=== PATIENT | female | born 1995 | race Hispanic/Latino ===

== ENCOUNTER 2017-01-04 11:12 | Inpatient (IN) | payer OTHER ==
[~2017-01-04] VITALS: Ht 156.2 cm; Wt 77.1 kg
[~2017-01-04 11:12] MED LIST: ASCO500T8 PO; Benzocaine TOPICAL; Docusate Sodium PO; FERR-74 PO; Hydrocodone/Acetaminophen PO; Ibuprofen PO; Lanolin TOPICAL; PREN1TAB78 PO; TUCPAD TOPICAL
[2017-01-04] MEDS ORDERED: Lactated Ringer's 1,000 ML IV PRN (12:29)
[2017-01-04] MEDS ORDERED: Oxytocin 10 Unit/mL Inj IM PRN ×2 (12:30→22:00)
[2017-01-04] MEDS ORDERED: Oxytocin 30 Units/500 mL LR 30 UNITS in IV Premix 1 EACH IV PRN ×2 (12:30→22:00)
[2017-01-04] MEDS ORDERED: Carboprost 250 mCg/mL Inj IM PRN ×2 (12:30→22:00)
[2017-01-04] MEDS ORDERED: Methylergonovine 0.2 mg/mL Inj IM PRN ×2 (12:30→22:00)
[2017-01-04] MEDS ORDERED: Ampicillin Inj 2,000 MG in 0.9% Sodium Chloride 100 ML IV ONE (12:30)
[2017-01-04] MEDS ORDERED: Hemorrhage Kit, Post Partum XX ONE ×2 (12:30→22:00)
[2017-01-04] MEDS ORDERED: fentaNYL-PF 50 mCg/mL 2 mL Inj IVPUSH PRN (12:30)
[2017-01-04 12:43] LABS: Mean Corpuscular Hemoglobin 26.2 pg (27.0-35.0); Mean Corpuscular Volume 79.3 fL (81-100)
--- NOTE | 2017-01-04 12:57 | PCM.HPOB ---
Subjective Date of Service: Jan 04, 2017 Referring Provider: Admitting Physician: Rimma Phelan MD Primary Care Physician: Rimma Phelan MD Attending Physician: Rimma Phelan MD Wireless Cellular Technician: Dr. Moore Chief Complaint at 37+3 weeks with SROM at 02:00hrs 01/04/2017 History of Present History of Present Illness Patient is a very pleasant 21-year-old who has an EDC of 01/21/2017 by an ultrasound done at 23 weeks. She presented late for care as she was still breast-feeding her first child and was having irregular cycles. She did not realize she was even for at least a few months. She has come regularly since presentation to care in early September. Ultrasound done September 29 showed a healthy baby boy at 23 weeks +5 days with EDC of 317. Mother's blood pressures have been normotensive throughout the and weight gain has been less than 10 pounds. Blood type is O+, with no abnormal antibodies. Initial hemoglobin was 11.8. Pap smear was normal. Varicella and rubella are both immune. RPR was nonreactive, hepatitis B surface engine was negative, HIV was negative, and urine culture was negative. Hepatitis C is less than 0.1. HSV type I was positive but HSV type II was negative. TSH was normal at 0.58. GC chlamydia testing was negative. Her 1 hour GTT was elevated at 205 but three-hour GTT was normal with fasting blood sugar of 78, 1 hour of 129, 2 are 116, and 3 hour of 101. Patient woke at around 0200 hrs. today with spontaneous rupture of membranes. She was not michael and went back to sleep. She has continued to leak fluid since that time and actually went to work but then called the office and was advised to come to the center. At present she is grossly ruptured. heart rate is in the 130s to 140s with good nkei-ef-pumn variability. Her fluid is clear and she has had some slight bloody mucus. She is feeling the baby move and is having only rare contractions. She has otherwise been feeling well with no signs of cough or cold and no fevers. Bladder and bowel function have been normal. Vaginal exam showed vertex at -3 station, 25% effaced, and cervix is of moderate consistency. Options reviewed with her and Cervidil will be placed and hopefully will be able to affect some cervical softening. Pitocin augmentation is anticipated later on. Estimated weight is between 5-6 pounds. Vaginal delivery is anticipated area did mother is GBS negative but I am starting antibiotics given her gestational age and PROM. Given her irregular cycles and unknown LMP, she could clinically be 36+3 to 38+3 weeks at this time. She would like an epidural once labor is active. Vaginal delivery is anticipated. I have reviewed her admission with Dr. Moore. OB History: (2), Term (1), (0), Living (1) Obstetrical Complications: Other (late presentation to care due to irregular cycles and ) Past Medical History Obstetrical History: 1. Baby #1 was born May 2014 at 40 weeks +2 days following 9 hours of labor. She had an epidural and went onto of a baby girl, weighing 5 lbs. 12 oz.. She did have mild PIH and oligohydramnios noted in labor but did not require any medications for this and has not had any hypertension in this . She breast-fed that baby for over 2-1/2 years. "Christine" Gynecologic History: She has not had any history of abnormal Pap smears or STDs. Medical History: She has had extensive tinea versicolor for years, especially involving her torso. She has acanthosis nigricans and has had mild depression in the past. She has not had any problems with depression or anxiety. Surgical History: She has not had any previous surgical procedures. Social History: She is single and lives with the father of her daughter. 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 She has high school education and is bilingual Ukrainian and [place]. Hx Tobacco Use: No Hx Alcohol Use: No Hx Substance Use: No Past Family History Living Arrangement: with Family Genetic Screening/Counseling Comment: no genetic testing done as patient presented to late for care Baby father-had child w defect: No Review of Systems Constitutional: Y: Change of appitite, Fever, Pain Eyes: Denies: Blurred Vision, Redness, Vision Changes ENT: Denies: Dental Problems, Ear Pain, Nasal Congestion, Nose Discharge, Throat Pain Cardiovascular: Denies: Chest Pain, Edema Respiratory: Denies: Cough, SOB with Exertion Gastrointestinal: Denies: Abdominal Pain, Constipation, Diarrhea, Heartburn, Nausea, Vomiting Genitourinary: Denies: Dysuria, Hematuria Musculoskeletal: Denies: Redness, Swelling Skin/Breasts: Denies: Bruising, Discharge Skin: Denies: Bruising, Jaundice Neurological: Denies: Change in Speech, Confusion, Dizziness Psychologic: Denies: Agitation, Anxious, Apprehensive, Depression Hematologic: Denies: Adenopathy Medications Home medications Patient is only taking vitamins Allergy Coded Allergies: No Known Allergies (Unverified Allergy, Unknown, 06/02/14) Exam Vital Signs Vital signs reviewed and are stable Exam heart rate baseline in the 130 to 140s with clear sleep-wake cycles and good ggen-xd-fgcn variability. Category 1 tracing. Constitutional: Well-developed, Well-nourished, Normal habitus HEENT: PERRLA, Mucous Membr Moist/[place] Lungs: Clear to Auscultation, Normal Air Movement Heart: Regular Rate/Rhythm, Normal S1, Normal S2, No Murmurs/Rubs/Gallops Abdomen: Gravid, Normal bowel sounds, Soft, No tenderness Lymphatic: Normal: Neck Palpation of Nodes Extremities: Pulses Palpable x4, Warm, No Edema Skin: Rashes (extensive tinea versicolor over her torso, some tattoos) Neurological/Psychiatric: Alert, Oriented X3, Cooperative, No Acute Distress Neuro: Grossly Neurologically Intact Gynecologic: Normal: Cervix (vaginal exam showed vertex at -3 station, cervix 25% effaced, and moderate consistency. She was 2 cm dilated.) Labs/Diagnostics Labs Admission hemoglobin and hematocrit pending at time of this dictation. Blood type is O+ with no abnormal antibodies. Varicella and rubella are both immune. RPR is nonreactive. Hepatitis B surface antigen was negative, HIV negative, hepatitis C less than 0.1. HSV type I was positive but type II is negative. TSH normal at 0.58. GC chlamydia negative. One-hour GTT elevated at 205 but three-hour GTT was normal with fasting blood sugar of 78, one-hour 129, 2 or 116 , and 3 hour 101. A1c was 5.9%. Maternal Blood Type: O Hx Rho(D) Immune Globulin: No Antibody Screen: negative Group B Strep Results: Negative Previous with GBS: No Rubella: Immune Lab History: Positive for: Hx Herpes, Negative for: Hx Chicken Pox, Hx Gonorrhea, Hx HIV, Hx Syphilis OB Intrapartum Assessment/Plan Assessment Patient is a pleasant 21 -year-old who presented late for care as she had irregular cycles and was breast-feeding and did not realize she was . She has come regularly since presentation in early September. LMP is unknown and EDC of 01/21/2017 is [id number]. Patient may be 37+3 weeks plus or -1 week. She has had spontaneous rupture of membranes for clear fluid since 0200 hrs. this morning. She will be started on ampicillin and covered until delivery given possible status. Cervidil will be placed and Pitocin augmentation is anticipated at some point. Patient would like an epidural when appropriate. is also anticipated. Problems: (1) with 37 weeks completed gestation Status: Acute ICD Code: Z3A.37 (2) SROM (spontaneous rupture of membranes) Status: Acute ICD Code: [id number] Pain Evaluation: Adequate Pain Control Rimma Phelan MD Jan 04, 2017 12:57
[2017-01-04] MEDS: Sodium Chloride LOK Flush 10 mL Syringe IVFLUSH PRN ×2 (15:23→18:01)
[2017-01-04] MEDS: Lactated Ringer's 1,000 ML IV SCH ×3 (15:24→19:07)
[2017-01-04] MEDS ORDERED: Ampicillin Inj 1,000 MG in 0.9% Sodium Chloride 50 ML IV SCH (16:30)
[2017-01-04] MEDS ORDERED: fentaNYL 2 mCg/mL-Bupivicaine 0.125% 100 mL Premix EPIDURAL ONE (19:29)
[2017-01-04] MEDS ORDERED: Lactated Ringer's 1,000 ML IV SCH ×2 (19:43→21:57)
[2017-01-04] MEDS ORDERED: Lactated Ringer's 500 ML IV ONE (19:43)
--- NOTE | 2017-01-04 19:43 | PCM.HPANE ---
Patient Data Date of Service: Jan 04, 2017 (1909) Surgeon Admitting Provider:Rimma Phelan MD Attending Provider:Rimma Phelan MD Primary Care Physician:Rimma Phelan MD Other Provider:Lou Ibarra Anesthesia Reason for Visit Term Early Labor TERM EARLY LABOR Ht/WT & BMI Height (Feet): 5 Height (Inches): 3 Body Mass Index Allergies Coded Allergies: No Known Allergies (Unverified Allergy, Unknown, 01/04/17) Medications Active Scripts Witch Joelle/Glycerin (A.e.r Pads)12 Towelette/Pkg Towelette1 Towelette TOPICAL UD PRN perineal discomfort #12 TOWELETTE Prov:Rimma Phelan MD 06/04/14 [Lanolin] (Lansinoh Ointment)14 APPLIC/7 GM OINT No Conflict Check1 Applic TOPICAL PRN PRN Prov:Rimma Phelan MD 06/04/14 [Ibuprofen] (Motrin)800 MG TABLET No Conflict Dheao415 Mg PO Q6H PRN For Pain # 40 TABLET Prov:Rimma Phelan MD 06/04/14 [Hydrocodone/Acetaminophen] (Vicodin 5/325 mg)1 TAB TABLET No Conflict Check1-2 Tab PO Q3H PRN For Pain #40 TABLET Prov:Rimma Phelan MD 06/04/14 Ferrous Sulfate (Feosol)325 Mg Wycvvx032 Mg PO DAILYWM #90 TABLET Prov:Rimma Phelan MD 06/04/14 [Docusate Sodium] (Colace)100 MG CAPSULE No Conflict Qvwsw427 Mg PO BID PRN For Constipation #60 CAPSULE Ref 1 Prov:Rimma Phelan MD 06/04/14 [Benzocaine] (Dermoplast 20% Stanford)1 SPRAY/GM SPRAY No Conflict Check1 [place] TOPICAL UD PRN For Discomfort #1 CAN Prov:Rimma Phelan MD 06/04/14 Ascorbic Acid (Vitamin C)500 Mg Qyvjvi022 Mg PO DAILY #90 TABLET Prov:Rimma Phelan MD 06/04/14 Reported Medications Vits W-Ca,Fe,FA(<1Mg) ( Formula)1 Each Tablet1 Each PO DAILY 06/02/14 History History of ENT Problems?: No Hx of Heart Problems?: No Hx of Respiratory Problem?: No Hx Neurologic Problems?: No Hx of GI Problems?: No Hx of Problems?: No HX of Peritoneal Dialysis: No Female Hx: Positive for:: Currently Hx Musculoskeletal Problems?: No Hx of Psycho/Social Problems?: No Hx Surgeries?: No Hx Alcohol Use: NoHx Substance Use: No Smoking Status: Never Smoker Stop/Bang SU Risk Assessment: Low Risk, <3 Yes Risk Assessment Category Category 1A: Patient has history of documented sleep apnea, and HAS NOT received any narcotic, sedative or anesthesia administration during this stay. Category 1B: Patient has history of documented sleep apnea, and HAS received any narcotic , sedative or anesthesia administration during this stay Category 2: Patient has SUSPECTED Obstructive Sleep Apnea, and HAS received any narcotic , sedative or anesthesia administration during this stay. Category 3: Patient has SUSPECTED Obstructive Sleep Apnea and HAS NOT received narcotic, sedative or anesthesia administration during this stay. Category 4: Outpatient in Procedural Areas with known sleep apnea or who screen positive for High Risk via the STOP/BANG questionnaire. Exam Exam General Appearance: Alert, Oriented X3, Cooperative Lungs: Clear to Auscultation Heart: Exam Unremarkable Meds/Labs/Diagnostics Admission Meds Current Medications Lactated Ringer's (Lr) 1,000 ml @ 125 mls/hr Q8H IV Last administered on 19:07; Start 01/04/17 at 12:29 Dinoprostone 10 mg 10 mg ONCE ONCE VAGINAL Last administered on 01/04/17 14: 27; Start 01/04/17 at 12:30; Stop 01/04/17 at 12:40; Status DC Ampicillin Sodium/ Sodium Chloride (Principen Inj/ Normal Saline) 100 ml @ 200 mls/hr ONCE ONCE IV Last administered on 01/04/17 15:57; Start 01/04/17 at 12 :30; Stop 01/04/17 at 12:59; Status DC Labs Test 01/04/17 12:25 01/04/17 14:00 01/04/17 17:16 White Blood Count 10.1th/mm3 (3.8-10.1) Red Blood Count 4.58mil/mm3 (3.90-5.20) Hemoglobin 12.0g/dL (12.0-15.6) Hematocrit 36.3% (35.0-46.0) Mean Corpuscular Volume 79.3fL (81-100) Mean Corpuscular Hemoglobin 26.2pg (27.0-35.0) Mean Corpuscular Hemoglobin Concent 33.1% (32.0-37.0) Red Cell Distribution Width 15.1% (12.3-15.4) Platelet Count 348bil/L (150-400) HIV (1&2) Antibody Rapid Negative (Negative) Hold Urine Received (Received) Plan Impression Patient chart reviewed, patient interviewed and anesthestic plan with risks, benefits, and alternatives discussed, and informed consent obtained. NPO Status: L&D protocol ASA Physical Status: ASA2 Mod Systemic Disease Anesthetic Plan: Epidural Bene/Risks/Altern/Consents: Yes HP Complete Prior to Induction: Yes Jaswidner Chase MD Jan 04, 2017 19:43
[2017-01-04] MEDS ORDERED: Ondansetron 2 mg/mL 2 mL Inj IVPUSH PRN (19:45)
[2017-01-04] MEDS ORDERED: EPHEDrine Sulfate 50 mg/mL Inj IVPUSH PRN (19:45)
[2017-01-04] MEDS ORDERED: fentaNYL 2 mCg/mL-Bupiv 0.125% 100 ML EPIDURAL SCH (19:45)
[2017-01-04] MEDS ORDERED: Atropine 1 mg/10 mL (Code) Syringe IVPUSH PRN (19:45)
[2017-01-04] MEDS ORDERED: HYDROcodone-APAP 5-325 mg Tablet PO PRN (22:00)
[2017-01-04] MEDS ORDERED: LANOlin HPA 7 Gm Ointment TOPICAL PRN (22:00)
--- NOTE | 2017-01-04 22:11 | PCM.OBVAG ---
Vaginal Delivery Date of Service Jan 04, 2017 Pre Operative Diagnosis Pre Operative Diagnosis 1. at 37 weeks +3 days with spontaneous rupture of membranes 2. Cervidil augmentation of labor 3. Epidural analgesia 4. Spontaneous vaginal delivery of a live born male infant who is small for gestational age Post Operative Diagnosis Post Operative Diagnosis 1. at 37 weeks +3 days with spontaneous rupture of membranes 2. Cervidil augmentation of labor 3. Epidural analgesia 4. Spontaneous vaginal delivery of a live born male infant who is small for gestational age Procedure Obstetical Procedure: Normal Spontaneous Vaginal Delivery, Repair of Perineal Tear (1st degree) Glass Artist/Senior Communications Engineer Provider and Senior Communications Engineer: Dr. Rimma Phelan Indication for Procedure Induction: SROM, Progressed normally through labor Findings Obstetrical Findings: [place] (Male), Cord (3 Vessel), Weight (2322), Presentation (EVAN), 1 minute (9), 5 minutes (9), Placenta (Intact/ Normal), Perineal Laceration (1st degree) Analgesia/Medications Obstetrical Anesthesia: Epidural Procedure Details Procedure Details Patient is a pleasant 21-year-old who presented late for care as she was breast-feeding and had irregular cycles. She had estimated due date of 01/21/2017 based on a ultrasound done at 23+5 weeks. She has come regularly for care since presentation but weight gain in the has been less than 10 pounds and she also continued to breast-feed her 2-1/2-year-old daughter throughout the . She awoke in the early hours of 01/04/2017 at 0200 hrs. with spontaneous rupture of membranes for clear fluid. She was not michael in my back to sleep. She got up in the morning and went to work , and called from work for medical advice, and was advised to go to the center. She was grossly ruptured on admission, with vertex presentation at -3 station. She was 25% effaced , cervix was of moderate consistency and she was 2 cm dilated. Antibiotics were started given that her gestational age could be anywhere from 36+3 weeks to 38+3 weeks and she received 2 doses of ampicillin prior to delivery. Cervidil was placed but fell out after 2 hours and patient was kicking into labor on her own. An epidural was placed between 3-4 cm and worked very well for patient. Her first stage of labor was approximately 4 hours, second stage was 20 minutes, and third stage was 11 minutes. She went onto spontaneous vaginal delivery of a live born male . Baby was placed onto the maternal abdomen and delayed cord clamping was employed. His weight was 5 pounds and 2 ounces and he is soft gestational age. Placenta delivered intact with a three-vessel cord and was very small. It was not heavily calcified and I did not see any infarcts. Mother had a first degree right and left labial tear and a small second degree perineal tear. These were repaired with 4-0 Vicryl and 3-0 chromic, respectively, to achieve good cosmesis and hemostasis. Mother is breast-feeding and routine care is anticipated. Baby will be getting blood sugars but has already been feeding and appears to be doing satisfactorily. Specimen Placenta is for routine disposal IV Intake/Output Catheters: Straight (mother's bladder was emptied of 400 mls of clear urine after delivery. Baby was born with just one push.) Blood Loss & Administration Estimated Blood Loss: 200 Post Procedure Plan Post delivery Condition: Mom stable Rimma Phelan MD Jan 04, 2017 22:11
[2017-01-04] MEDS: Witch Hazel-Glycerin Pads TOPICAL PRN (23:31)
[2017-01-04] MEDS: Benzocaine (Dermoplast) 20% 60 Gm Spray TOPICAL PRN (23:31)
[2017-01-05] MEDS ORDERED: Oxytocin 30 Units/500 mL LR 30 UNITS in IV Premix 1 EACH IV PRN (05:16)
[2017-01-05] MEDS ORDERED: Lactated Ringer's 1,000 ML IV SCH (05:17)
[2017-01-05 07:18] LABS: Mean Corpuscular Hemoglobin 25.9 pg (27.0-35.0)
--- NOTE | 2017-01-05 12:38 | PCM.DC.OB ---
Obstetrical Discharge Summary Date of Service Jan 05, 2017 Date of hospital admission Jan 04, 2017 at 11:26 Date of Discharge: Jan 05, 2017 Providers Admitting Physician: Rimma Phelan MD Primary Care Physician: Rimma Phelan MD Attending Physician: Rimma Phelan MD Diagnosis at Time of Discharge 1. at 37 weeks +3 days with spontaneous rupture of membranes 2. Cervidil induction of labor 3. Epidural analgesia 4. Spontaneous vaginal delivery of a live born male who is small for gestational age Problems: (1) with 37 weeks completed gestation Status: Resolved ICD Code: Z3A.37 (2) SROM (spontaneous rupture of membranes) Status: Resolved (3) (normal spontaneous vaginal delivery) Status: Acute ICD Code: O80 Brief History and Physical: Patient is a very pleasant 21-year-old who has an EDC of 01/21/2017 by an ultrasound done at 23 weeks. She presented late for care as she was still breast-feeding her first child and was having irregular cycles. She did not realize she was even for at least a few months. She has come regularly since presentation to care in early September. Ultrasound done September 29 showed a healthy baby boy at 23 weeks +5 days with EDC of 317/2016. Mother's blood pressures have been normotensive throughout the and weight gain has been less than 10 pounds. Blood type is O+, with no abnormal antibodies. Initial hemoglobin was 11.8. Pap smear was normal. Varicella and rubella are both immune. RPR was nonreactive, hepatitis B surface engine was negative, HIV was negative, and urine culture was negative. Hepatitis C is less than 0.1. HSV type I was positive but HSV type II was negative. TSH was normal at 0.58. GC chlamydia testing was negative. Her 1 hour GTT was elevated at 205 but three-hour GTT was normal with fasting blood sugar of 78, 1 hour of 129, 2 are 116, and 3 hour of 101. Patient woke at around 0200 hrs. today with spontaneous rupture of membranes. She was not michael and went back to sleep. She has continued to leak fluid since that time and actually went to work but then called the office and was advised to come to the center. At present she is grossly ruptured. heart rate is in the 130s to 140s with good phlu-kl-njvn variability. Her fluid is clear and she has had some slight bloody mucus. She is feeling the baby move and is having only rare contractions. She has otherwise been feeling well with no signs of cough or cold and no fevers. Bladder and bowel function have been normal. Vaginal exam showed vertex at -3 station, 25% effaced, and cervix is of moderate consistency. Options reviewed with her and Cervidil will be placed and hopefully will be able to affect some cervical softening. Pitocin augmentation is anticipated later on. Estimated weight is between 5-6 pounds. Vaginal delivery is anticipated area did mother is GBS negative but I am starting antibiotics given her gestational age and PROM. Given her irregular cycles and unknown LMP, she could clinically be 36+3 to 38+3 weeks at this time. She would like an epidural once labor is active. Vaginal delivery is anticipated. I have reviewed her admission with Dr. Moore. Hospital Course: Patient is a pleasant 21-year-old who had late presentation to care due to irregular cycles and concurrent breast-feeding. Her dating ultrasound was done at 23 weeks +5 days and gave her an EDC of 01/21/2017. She did come regularly for care once she realized she was . She has spontaneous rupture of membranes at 0200 hrs. yesterday and eventually presented to the center. She was started on ampicillin from admission and did receive 2 doses prior to delivery. Cervidil was placed but fell out 2 hours later and she was kicking into labor on her own. She did receive an epidural. Her first stage of labor was 3 hours and 46 minutes, second stage XX minutes, third stage XI minutes. She has spontaneous vaginal delivery of a live born male with weight 5 lbs. 2 oz. and Apgars 9 at 1 minutes and 9 at 5 minutes. Fluid always remained clear and heart rate was reactive. She had a first-degree right and left labial tear which were sutured with 4-0 Vicryl to achieve good cosmesis and hemostasis and a small second degree tear to the perineal area repaired with 3-0 chromic. Estimated blood loss at time of delivery was around 200 mils. Placenta delivered intact with a three-vessel cord. It was quite small and scrawny. Mother had worked full- time throughout the and she also continued to breast-feed her older child and again less than 10 pounds. In the mom has been doing well and will be discharged boarder status today. She is up and ambulating. She still has a mild numb patch to the left thigh that is resolving and likely from her epidural medications. She is bonding well with her baby but he is having difficulty feeding. Baby's blood sugars have been reassuring thus far and and nursing are working with her. She is only needing ibuprofen for pain control and already has milk in her breasts. Her vital signs are stable and were reviewed. Blood pressure has varied between 99/54-122/57, heart rate 68-90 and temperature 36.4. Chest was clear throughout with normal respiratory efforts and heart sounds were normal sinus rhythm with no murmurs. Breasts are soft and milk is easily expressible nipples are moderate in size. Fundus is firm at the umbilicus. Her perineum is not swollen his sutures are clean and intact and she has no ankle edema. Admitting hemoglobin was 12 with hematocrit of 36.3 and platelet count of 348. Discharge hemoglobin is 10.5 with hematocrit of 32.9 and platelet count 298. ([Benzocaine]) 1 SPRAY/GM SPRAY 1 SPRAY TOPICAL UD PRN PRN For Discomfort Prescribed by: RIMMA PHELAN MD ([Docusate Sodium]) 100 MG CAPSULE 100 MG PO BID PRN PRN For Constipation Prescribed by: RIMMA PHELAN MD ([Hydrocodone/Acetaminophen]) 1 TAB TABLET 1-2 TAB PO Q3H PRN PRN For Pain Prescribed by: RIMMA PHELAN MD ([Ibuprofen]) 800 MG TABLET 800 MG PO Q6H PRN PRN For Pain Prescribed by: RIMMA PHELAN MD ([Lanolin]) 14 APPLIC/7 GM OINT 1 APPLIC TOPICAL PRN PRN PRN Prescribed by: RIMMA PHELAN MD Ascorbic Acid (Vitamin C) 500 Mg Tablet 500 MG PO DAILY Prescribed by: RIMMA PHELAN MD Ferrous Sulfate (Feosol) 325 Mg Tablet 325 MG PO DAILYWM Prescribed by: RIMMA PHELAN MD Vits W-Ca,Fe,FA(<1Mg) ( Formula) 1 Each Tablet 1 EACH PO DAILY (Reported) Witch Joelle/Glycerin (A.e.r Pads) 12 Towelette/Pkg Towelette 1 TOWELETTE TOPICAL UD PRN PRN perineal discomfort Prescribed by: RIMMA PHELAN MD Disposition Patient will be discharged to board status today as baby needs additional breast-feeding and feeding support. Discharge Diet: No restrictions Discharge Activity-General: No restrictions, Pelvic Rest for 6 weeks, Pelvic Rest, Try not to overdue, Be up and about, Balance rest and activity, Activity as pain allows, Activity as energy allows Rimma Phelan MD Jan 05, 2017 12:38
--- NOTE | 2017-01-05 12:42 | PCM.DIOB ---
Obstetrical Disch Instruction Date of Service: Jan 05, 2017 Dates of Hospitalization Date of Hospital Admission Jan 04, 2017 at 11:26 Providers Admitting Physician: Rimma Phelan MD Primary Care Physician: Rimma Phelan MD Attending Physician: Rimma Phelan MD Discharge Diagnosis Discharge Diagnosis 1. at 37 weeks +3 days with spontaneous rupture of membranes 2. Cervidil augmentation of labor 3. Epidural analgesia 4. Spontaneous vaginal delivery of a live born male who is small for gestational age Post Operative diagnosis 1. at 37 weeks +3 days with spontaneous rupture of membranes 2. Cervidil augmentation of labor 3. Epidural analgesia 4. Spontaneous vaginal delivery of a live born male infant who is small for gestational age Problems: (1) with 37 weeks completed gestation Status: Resolved ICD Code: Z3A.37 (2) SROM (spontaneous rupture of membranes) Status: Resolved (3) (normal spontaneous vaginal delivery) Status: Acute ICD Code: O80 Diet Discharge Diet: No restrictions Activity Discharge Activity-General: No restrictions, Pelvic Rest for 6 weeks, Try not to overdue, Be up and about, Balance rest and activity, Activity as pain allows , Activity as energy allows Dressing and Incisional Care Hygiene: May shower, Perineal care, Sitz bath, Dermoplast spray, Witch Joelle pads, Ice Additional Instructions Discharge Instructions Dr. Kerns will be rounding on the baby tomorrow and determining if he is ready for discharge as I am out of town on a conference. I would anticipate the baby will likely be ready for discharge in the next 1-2 days, depending on how he feeds. I would like to see him on Tuesday ( I will see him at the time of your original OB appt.). Follow Up Plan Follow-up appointment: Weeks (6) Call your provider for: Fever or Chills, Shortness of breath, Heavy vaginal bleeding, Epigastric pain, Excessive constipation, Vaginal discomfort, Red painful breasts Rimma Phelan MD Jan 05, 2017 12:41
[2017-01-05] MEDS ORDERED: IBUP800T28 PO (12:43)
[2017-01-05] MEDS ORDERED: FERR-74 PO (12:43)
[2017-01-05] MEDS ORDERED: DOCU-41 PO (12:43)
[2017-01-05 18:53] VITALS: BP 120/62; PULSE 89; RESP 16
[2017-01-05] MEDS: Benzocaine (Dermoplast) 20% 60 Gm Spray TOPICAL PRN (19:08)
[2017-01-05] MEDS: Witch Hazel-Glycerin Pads TOPICAL PRN (19:08)
== END 2017-01-05 19:50 | disposition home or self-care (01) | DRG 560 ==
LOC: FBCO 11:12 → FBC 11:26 → UNDODISIN 17:15
PROVIDERS: ADMIT Family Medicine; ATTEND Family Medicine
PROC: 10E0XZZ Delivery of Products of Conception, External Approach (ICD-10-PCS; principal; 2017-01-04)
PROC: 0HQ9XZZ Repair Perineum Skin, External Approach (ICD-10-PCS; 2017-01-04)
DX: O42.02 Full-term premature rupture of membranes, onset of labor within 24 hours of rupture (principal); O98.52 Other viral diseases complicating childbirth; B00.9 Herpesviral infection, unspecified; Z3A.37 37 weeks gestation of pregnancy; Z37.0 Single live birth; O70.0 First degree perineal laceration during delivery